=== PATIENT | male | born 1990 | race Caucasian/White ===

== ENCOUNTER → 2024-04-03 | Day surgery (SDC) | payer BC ==
[~2024-04-03] MED LIST: ACETAMINOPHEN-1 EAC4 PO; BUPIVACAINE HCL 0.5% INJ 30 ML VIAL INJ ONE; DEXAMETHASONE SOD PHOS INJ 4 MG/ML SDV ONE; DEXMEDETOMIDINE HCL 200 MCG/2 ML VIAL ONE; EPHEDRINE SULFATE INJ 50 MG/ML VIAL ONE; ESTROGEN PO; FENTANYL CITRATE/PF 100MCG/2 ML INJ ONE; GLYCOPYRROLATE INJ 0.2 MG/ML VIAL ONE; LIDOCAINE 1% W/EPINEPHRINE 20 ML VIAL ONE; LIDOCAINE HCL 2% LOCAL INJ 5 ML SDV VIAL INJ ONE; MIDAZOLAM HCL 2 MG/2 ML VIAL ONE; MUPIROCIN 2% OINT 22 GM TUBE ONE; ONDANSETRON HCL INJ 2MG/ML 2ML 2 MG/ML VIAL ONE; PROPOFOL IV EMULSION 10 MG/ML 50 ML VIAL IV ONE; ROCURONIUM BROMIDE 10 MG/ML 5ML VIAL IV ONE; SEVOFLURANE INHAL SOLN 250 ML PEN BTL ONE; SODIUM CHLORIDE 0.9% INJ 100 ML BAG ONE; SUCCINYLCHOLINE CHLORIDE 20 MG/ML 10ML VIAL ONE; [UNRECOGNIZED DRUG - OTHER] IM
[2024-04-03] MEDS: LACTATED RINGER'S 1,000 ML ONE (05:59)
[2024-04-03 10:05] VITALS: BP 119/76; PULSE 56; RESP 20; O2SAT 98
== END | disposition home or self-care (01) ==
LOC: OR 05:18
PROVIDERS: ATTEND Plastic Surgery
DX: L72.11 Pilar cyst (principal); L72.3 Sebaceous cyst; E66.01 Morbid (severe) obesity due to excess calories; F43.10 Post-traumatic stress disorder, unspecified
CPT/HCPCS: 11422 ×3; 11423 ×2; 88304; J0330; J0690; J1100; J2001; J2250; J2405; J2704; J3010; J7050; J7121